=== PATIENT | male | born 1970 | race Two or more races ===

== ENCOUNTER 2018-10-20 16:00 | Emergency (ER) | payer BC, OTHER ==
[~2018-10-20] VITALS: Ht 175.3 cm; Wt 118.8 kg
[2018-10-20 18:26] VITALS: BP 147/69
[2018-10-20] MEDS ORDERED: METHOCARBAMOL 500 MG TAB PO ONE (18:45)
[2018-10-20] MEDS ORDERED: KETOROLAC TROMETH 60MG/2ML VIAL IM ONE (18:45)
== END 2018-10-20 19:30 | disposition home or self-care (01) ==
LOC: ER 16:10
DX: G89.29 Other chronic pain (principal); M54.5 Low back pain; E11.9 Type 2 diabetes mellitus without complications; E78.5 Hyperlipidemia, unspecified; I10 Essential (primary) hypertension
CPT/HCPCS: 96372; 99283; J1885